=== PATIENT | female | born 1995 | race Hispanic/Latino ===

== ENCOUNTER 2018-06-16 16:40 | Emergency (ER) | payer OTHER ==
[~2018-06-16] VITALS: Ht 160 cm; Wt 60.3 kg
[~2018-06-16 16:40] MED LIST: SPIRONOLACTONE25 MG PO
--- OUTSIDE RECORDS SUMMARY | 2018-06-16 16:42 | XMS REPORT | Encounter Summary ---
Author Organization Unknown Address [address] [place] [address] Phone [phone] Reason for Visit Screening - TB Instructions 1. Tuberculosis screening Tubersol 5 tub. unit/0.1 mL intradermal injection solution PPD (purified protein derivative), skin test - Patient was advised to follow-up with [facility] within 48-72 hours. Discussion Note Pt is aaox3 and in NAD; verbalizes understanding of all instructions and has no further questions at this time Patient educational handouts: No information available. Plan of Care Patient Instructions The patient was advised that the tuberculin skin test must be read within 48-72 hours. If not, the skin test will be considered invalid and will have to be repeated. The patient acknowledged understanding of this advice. Reminders Provider Appointments None recorded. Lab PPD (Purified Protein Derivative), Skin Test 03/24/2017 [facility] Referral None recorded. Procedures None recorded. Surgeries None recorded. Imaging None recorded. Medications Name Start Date cyclobenzaprine 10 mg tablet Take 1 tablet 3 times a day by oral route as needed. Tubersol 5 tub. unit/0.1 mL intradermal injection solution Inject 0.1 mL by intradermal route. Medications Administered Name Date Tubersol 5 tub. unit/0.1 mL intradermal injection solution Inject 0.1 mL by intradermal route. [id number] Vitals Height 5 ft 3 in Lab Results None recorded. Allergies Code Code System Name Reaction Severity Status Onset 1191 RxNorm Aspirin Active Nsaids (Non-steroidal Anti-inflammatory Drug) Active Problems Name Status Onset Date Source Acute Conjunctivitis Active Encounter Excessive Cerumen in Ear Canal Active Encounter Dysfunction of Eustachian Tube Active Encounter Acute Upper Respiratory Infection Active Encounter Allergic Rhinitis Active Encounter Cough Active Encounter Procedures None recorded. Vaccine List Vaccine Type influenza, unspecified formulation 07/08/2016 Tdap 06/04/2009 Social History Smoking Status Never Smoker Past Encounters 03/24/2017 Tuberculosis Screening PARTHA Brown: [address] [place] [address], Ph. History of Present Illness Screening Request - TB Reported By: Patient Screening Request: BCG No prior BCG vaccination. PPD No past history of postive TB skin test (PPD), No previous severe local reaction to TB skin test (PPD). OTHER No prior vaccines within last month Review of Systems Screening - TB Reported By: Patient Symptoms during past year > 2 weeks, NOT associated with specific illness?: unexplained or low grade fever No fever. night sweats No night sweats. unexplained weight loss > 5 lbs No unexplained weight loss. persistent cough No persistent cough. shortness of breath No shortness of breath. coughing up blood (hemoptysis) No coughing up blood (hemoptysis). unusual fatigue No unusual fatigue. loss of appetite No loss of appetite. swollen neck glands No swollen neck glands Physical Exam Screening Reported By: Patient General Appearance: General: well-developed, well-nourished, no acute distress
--- OUTSIDE RECORDS SUMMARY | 2018-06-16 16:42 | XMS REPORT | Encounter Summary ---
Author Organization Unknown Address [address] [place] [address] Phone [phone] Reason for Visit Medical Complaint Instructions 1. Acute pharyngitis sore throat: care instructions rapid strep group A, throat Lidocaine Viscous 2 % mucosal solution 2. Headache headache: care instructions Discussion Note Pt is in NAD; Verbalizes understanding of all instructions with no questions at this time. Plan of Care Patient Instructions Gargle and spit viscous lidocaine as needed for sore throat as directed. Proper hydration and rest. Do not share any utensils/cups, no kissing. Frequent handwashing recommended. Recommend rest and proper hydration for headache. Take medications as prescribed. Return to clinic or follow up with your PCP within 2-3 days if symptoms worsen as discussed. In case of an emergency call 911 or go to nearest ER. Reminders Provider Appointments None recorded. Lab Rapid Strep Group a, Throat 04/26/2017 [facility] Referral None recorded. Procedures None recorded. Surgeries None recorded. Imaging None recorded. Medications Name Start Date Fluzone Quad [id number] 60 mcg (15 mcg x 4)/0.5 mL IM suspension IMMUNIZATION GIVEN Lidocaine Viscous 2 % mucosal solution Take 10 mL every 3 hours by oral route as needed. Tubersol 5 tub. unit/0.1 mL intradermal injection solution Inject 0.1 mL by intradermal route. Medications Administered None recorded. Vitals Height Weight BMI Blood Pressure 5 ft 3 in 137 lbs 24.3 kg/m2 108/70 mm[Hg] Lab Results Date Name Specimen Result Interpretation Description Value Range Status Address Rapid Strep Group a, Throat Result negative [facility]: [address] [place] [address] Swab Location Left and Right tonsillar pillars [facility]: [address] [place] [address] Allergies Code Code System Name Reaction Severity Status Onset 161 RxNorm Acetaminophen Active 1191 RxNorm Aspirin Active Nsaids (Non-steroidal Anti-inflammatory [...] History Smoking Status Never Smoker Past Encounters 04/26/2017 Acute Pharyngitis; Headache Cassandra Menon, [employer]-C[facility] [address] [facility] [place] [address] Ph. History of Present Illness Throat-Oral Complaint Reported By: Patient HPI: Location: throat. Quality: sore throat. Severity: moderate, pain level 5-6/10. Duration: 1 days. Onset/Timing: sudden. Context: no sick contacts, no foreign travel, non-smoker. Modifying factors: ; none. Associated Symptoms: no fever, no body aches, no sputum production, no shortness of breath, no wheezing, no change in number of pillows needed to sleep at night, no sweats, no significant weight gain, no significant weight loss, no morning cough, no vomiting, no diarrhea, no rash, no nausea, headache, sore throat Review of Systems:ROS as noted in the HPI Review of Systems Basic Reported By: Patient Physical Exam Adult Basic, 14-21 Yr Male, Adult Female Complete, Adult Male Complete, 14-21 Yr Females Reported By: Patient Constitutional: General Appearance: healthy-appearing, well-nourished, well-developed. Level of Distress: NAD. Ambulation: ambulating normally Psychiatric: Mental Status: active and alert. Orientation: to time, to place, to person Eyes: Lids and Conjunctivae: non-injected, no discharge, no pallor. Pupils: PERRLA. Corneas: grossly intact. EOM: EOMI. Lens: clear [facility]-Ktmu-Yuiep-Throat: Nose: no lesions on external nose, nares patent, no septal deviation, nasal passages clear, no sinus tenderness, post nasal drip. Lips, Teeth, and Gums: no mouth or lip ulcers, no bleeding gums, normal dentition. Oropharynx: moist mucous membranes, no exudates, tonsils not enlarged, erythema, erythema Neck: Neck: supple. Lymph Nodes: no cervical LAD Lungs: Respiratory effort: no dyspnea, no tachypnea, no use of accessory muscles, no intercostal retractions. Auscultation: breath sounds normal, good air movement Cardiovascular: Heart Auscultation: RRR, no murmurs Neurologic: Gait and Station: normal gait, normal station. Cranial Nerves: grossly intact. Sensation: grossly intact. Reflexes: deep tendon reflexes 2+ bilaterally throughout
--- OUTSIDE RECORDS SUMMARY | 2018-06-16 16:42 | XMS REPORT | Encounter Summary ---
Author Organization Unknown Address [address] [place] [address] Phone [phone] Reason for Visit Screening - TB Instructions 1. Tuberculosis screening PPD (purified protein derivative), skin test - Patient was advised to follow-up with [facility] within 48-72 hours. Tubersol 5 tub. unit/0.1 mL intradermal injection solution Discussion Note: None recorded. Patient educational handouts: No information available. Plan of Care Patient Instructions RTC in 48-72 for reading. see vis handout for any questions. Reminders Provider Appointments None recorded. Lab PPD (Purified Protein Derivative), Skin Test 09/10/2016 [facility] Referral None recorded. Procedures None recorded. Surgeries None recorded. Imaging None recorded. Medications Name Start Date Tubersol 5 tub. unit/0.1 mL intradermal injection solution Take 0.1 mL by intradermal route. The patient was advised that the tuberculin skin test must be read within 48-72 hours. If not, the skin test will be considered invalid and will have to be repeated. The patient acknowledged understanding of this advice. No complaints when injection was given. Medications Administered Name Date Tubersol 5 tub. unit/0.1 mL intradermal injection solution Take 0.1 mL by intradermal route. [id number]:23:04 Vitals None recorded. Lab Results None recorded. Allergies Name Reaction Severity Onset NKDA Problems Name Status Onset Date Source Acute Conjunctivitis Active Encounter Excessive Cerumen in Ear Canal Active Encounter Dysfunction of Eustachian Tube Active Encounter Acute Upper Respiratory Infection Active Encounter Allergic Rhinitis Active Encounter Cough Active Encounter Procedures None recorded. Vaccine List Vaccine Type Tdap 06/03/2009 Social History Smoking Status Never Smoker Past Encounters 09/10/2016 Tuberculosis Screening PARTHA Weldon-C: [address], [place] [address], Ph. History of Present Illness Screening Request [...]
--- OUTSIDE RECORDS SUMMARY | 2018-06-16 16:42 | XMS REPORT | Continuity of Care Document ---
Author Author [facility] Address Unknown Phone Unavailable Problems Problem Status Onset Date Classification Date Reported Comments Source Acute pharyngitis 04/26/2017 Diagnosis 04/26/2017 [facility] Headache 04/26/2017 Diagnosis 04/26/2017 [facility] Tuberculosis screening 03/24/2017 Diagnosis 03/24/2017 [facility] Spasm 10/25/2016 Diagnosis 10/25/2016 [facility] Acute Conjunctivitis Problem 04/26/2017 [facility] Excessive Cerumen in Ear Canal Problem 04/26/2017 [facility] Dysfunction of Eustachian Tube Problem 04/26/2017 [facility] Acute Upper Respiratory Infection Problem 04/26/2017 [facility] Allergic Rhinitis Problem 04/26/2017 [facility] Cough Problem 04/26/2017 [facility] Medications Medication Details Route Status Patient Instructions Ordering Provider Order Date Source influenza A virus A/[facility] (H3N2) antigen 0.03 MG/ML / influenza A virus A/ (H1N1) antigen 0.03 MG/ML / influenza B virus B/[place] antigen 0.03 MG/ML / influenza B virus B/[facility] antigen 0.03 MG/ML Injectable Suspension [Fluzone Quadrivalent [id number]] Fluzone Quad [id number] 60 mcg (15 mcg x 4)/0.5 mL IM suspension IMMUNIZATION GIVEN Active [facility] Lidocaine Hydrochloride 20 MG/ML Mucous Membrane Topical Solution Lidocaine Viscous 2 % mucosal solution Take 10 mL every 3 hours by oral route as needed. Active [facility] Purified Protein Derivative of Tuberculin 50 UNT/ML Injectable Solution [Tubersol] Tubersol 5 tub. unit/0.1 mL intradermal injection solution Inject 0.1 mL by intradermal route. Active [facility] Cyclobenzaprine hydrochloride 10 MG Oral Tablet cyclobenzaprine 10 mg tablet Take 1 tablet 3 times a day by oral route as needed. Active [facility] Allergies, Adverse Reactions, Alerts Substance Category Reaction Severity Reaction type Status Date Reported Comments Source Nsaids (Non-steroidal Anti-inflammatory Drug) Allergy to substance 10/25/2016 [facility] Aspirin Allergy to substance 10/25/2016 [facility] Acetaminophen Allergy to substance 04/26/2017 [facility] Immunizations Immunization Date Given Site Status Last Updated Comments Source influenza, unspecified formulation 07/08/2016 completed [facility] Tdap 06/04/2009 completed [facility] Results Order Name Results Value Reference Range Date Interpretation Comments Source RESULT negative 04/26/2017 [facility] SWAB LOCATION Left and Right tonsillar pillars 04/26/2017 [facility] Vital Signs Vital Sign Value Date Comments Source Diastolic (mm Hg) 70 04/26/2017 [facility] Height 63 04/26/2017 [facility] Systolic (mm Hg) 108 04/26/2017 [facility] Weight 137 04/26/2017 [facility] Height 63 03/24/2017 [facility] Diastolic (mm Hg) 60 10/25/2016 [facility] Height 63 10/25/2016 [facility] Systolic (mm Hg) 100 10/25/2016 [facility] Weight 145 10/25/2016 [facility] Encounters Location Location Details Encounter Type Encounter Number Reason For Visit Attending Provider ADM Date DC Date Status Source [place] - [facility] - [id number] Ney Rosales, [employer]-C: [address] [place] [address], Ph. [phone] [id number] Ney Rosales 09/10/2016 [facility] [place] - [facility] - [id number] Cassandra Menon, [employer]-C: [address] [place] [address], Ph. [id number] Cassandra Menon 10/25/2016 [facility] [place] - [facility] - [id number] Kavon Frankel, [employer] DES[employer]ER: [address] [place] [address], Ph. [phone] [id number] Kavon Frankel 03/24/2017 [facility] [place] - [facility] - [id number] Menon, [facility]-C: [address], [place] [address], Ph. [id number] Cassandra Menon 04/26/2017 [facility] Procedures Procedure Code Date Perfomer Comments Source
--- OUTSIDE RECORDS SUMMARY | 2018-06-16 16:42 | XMS REPORT | Encounter Summary ---
Author Organization Unknown Address [address] [place] [address] Phone [phone] Reason for Visit Medical Complaint Instructions 1. Spasm cyclobenzaprine 10 mg tablet Discussion Note Pt is in NAD; Verbalizes understanding of all instructions with no questions at this time. Patient educational handouts: No information available. Plan of Care Patient Instructions Take acetaminophen every 4-6hrs as needed for pain. Take cyclobenzaprine as directed for muscle spasm. Recommend knee brace and or los wrap to help with inflammation and pain. Alternate with ice and heat for pain. Proper hydration and rest this week. Start low impact activity next week and increase activity as tolerated. Take medications as prescribed. Return to clinic or f/u with your PCP within 2-3 days if symptoms worsen as discussed. Recommend go to ER or call 911 in case of an emeregency. Reminders Provider Appointments None recorded. Lab None recorded. Referral None recorded. Procedures None recorded. Surgeries None recorded. Imaging None recorded. Medications Name Start Date cyclobenzaprine 10 mg tablet Take 1 tablet 3 times a day by oral route as needed. Medications Administered None recorded. Vitals Height Weight BMI Blood Pressure 5 ft 3 in 145 lbs 25.7 100/60 Lab Results None recorded. Allergies Name Reaction Severity Onset Aspirin Nsaids (Non-steroidal Anti-inflammatory Drug) Problems Name Status Onset Date Source Acute Conjunctivitis Active Encounter Excessive Cerumen in Ear Canal Active Encounter Dysfunction of Eustachian Tube Active Encounter Acute Upper Respiratory Infection Active Encounter Allergic Rhinitis Active Encounter Cough Active Encounter Procedures None recorded. Vaccine List Vaccine Type influenza, unspecified formulation 07/07/2016 Tdap 06/03/2009 Social History Smoking Status Never Smoker Past Encounters 10/25/2016 Spasm PARTHA Coffey-C: [address] [place] [address], Ph. History of Present Illness Musculoskeletal Complaint Reported By: Patient HPI: Location: pain is not radiating, Location:. Quality: aching, deep, intermittent; spasm. Severity: pain level 6/10. Duration: ; 1 week. Onset/Timing: gradual. Context: overuse, sports injury; pt exercises 5 days a week for 30-60 mins and runs. Alleviating factors: rest. Aggravating factors: exercise. Associated Symptoms: no fever/chills, no warmth, no redness, no swelling, no drainage, no ecchymosis, no weakness, no tingling, no numbness, no radiation, no catching/locking, no popping/clicking, no buckling, no grinding, no instability, no weight loss, no change in bowel/bladder habits, no muscle aches, no headache Review of Systems:ROS as noted in the HPI Review of Systems Basic Reported By: Patient Physical Exam Adult Basic, Adult Female Complete, 14-21 Yr Females Reported By: Patient Constitutional: General Appearance: healthy-appearing, well-nourished, well-developed. Level of Distress: NAD. Ambulation: ambulating normally Psychiatric: Mental Status: active and alert, normal affect, normal mood. Orientation: to time, to place, to person Neck: Neck: supple Lungs: Respiratory effort: no dyspnea, no tachypnea, no use of accessory muscles, no intercostal retractions. Auscultation: breath sounds normal, clear to auscultation, no wheezing, no rales/crackles, no rhonchi, no retractions Cardiovascular: Heart Auscultation: RRR, no murmurs, no gallops, no rub, normal femoral pulse. Pulses including femoral / pedal: normal throughout Musculoskeletal:: Motor Strength and Tone: normal motor strength, normal tone. Joints, Bones, and Muscles: normal movement of all extremities, no bony abnormalities, no contractures, no malalignment, no tenderness. Extremities: no cyanosis, no edema, no varicosities, no palpable cord. Cervical Spine: no pain elicited by motion Neurologic: Gait and Station: normal gait, normal station. Cranial Nerves: grossly intact. Sensation: grossly intact. Reflexes: DTRs 2+ bilaterally throughout
--- NOTE | 2018-06-16 22:00 | Diagnostic Imaging Report ---
EXAMINATION: Head CT without contrast. HISTORY:Double vision, right facial numbness. COMPARISON:None. TECHNIQUE: Multidetector axial images were obtained from the foramen magnum to the vertex without contrast. The images were reconstructed using brain and bone algorithms. Thin section brain images were reformatted into coronal and sagittal planes. Dose modulation, iterative reconstruction, and/or weight based adjustment of the mA/kV was utilized to reduce the radiation dose to as low as reasonably achievable. Intravenous contrast: None IMAGE QUALITY: Acceptable. FINDINGS: Skull/scalp: No lytic or blastic. lesions. No surgical changes. Parenchyma: No abnormal density. No acute hemorrhage, mass or acute major vascular territorial infarct. Arteries: No density suggestive of thrombosis. Dural sinuses: No abnormal density suggestive of thrombosis. Ventricles: No hydrocephalus or displacement. Extra-axial spaces: No abnormal density. Brain volume: Normal for age. Craniocervical junction: No mass, Chiari malformation, or basilar invagination. Sella: No mass. Paranasal/mastoid sinuses: Imaged portions unremarkable. IMPRESSION: No intracranial abnormality. Signed by: Dr. Steph Reyes M.D. on 06/16/2018 9:57 PM
[2018-06-16 23:36] VITALS: BP 102/83
== END 2018-06-16 23:55 | disposition home or self-care (01) ==
LOC: ER 16:40
DX: H53.2 Diplopia (principal)
CPT/HCPCS: 70450; 99283